=== PATIENT | female | born 1955 | race Caucasian/White ===

== ENCOUNTER 2023-11-26 06:35 | Inpatient (IN) | payer OTHER, MEDICAID ==
[~2023-11-26] VITALS: Ht 165.1 cm; Wt 77.1 kg
[2023-11-26 06:42] VITALS: BP_SYST 151; PULSE 78; RESP 18; TEMP 97.4; O2SAT 98
[2023-11-26] MEDS: ASPIRIN 81 MG TAB.CHEW PO ONE (07:11)
[2023-11-26] MEDS: NACL 0.9% 1,000 ML IV ONE (07:16)
[2023-11-26 07:44] LABS: BASOPHILS % (AUTO) 0.2 % (0.0-2.0); HEMATOCRIT 44.5 % (36-48); HEMOGLOBIN 14.6 g/dL (12.0-16.0); LYMPHOCYTES # (AUTO) 0.5 K/uL (1.0-5.5); LYMPHOCYTES % (AUTO) 3.7 % (20.5-51.5); MEAN CORPUSCULAR HEMOGLOBIN 29 pg (27-31); MEAN CORPUSCULAR HGB CONC 33 % (32-36); MEAN CORPUSCULAR VOLUME 90 fL (79.0-98.0); MONOCYTES # (AUTO) 0.3 K/uL (0.0-1.0); MONOCYTES % (AUTO) 2.1 % (1.7-9.3); NEUTROPHILS # (AUTO) 13.4 K/uL (1.8-7.7); PLATELET COUNT (AUTO) 241 K/uL (130-430); RED BLOOD CELL COUNT(AUTO) 4.95 MIL/uL (4.2-6.2); RED CELL DISTRIBUTION WIDTH 13.5 % (9.0-15.0); WHITE BLOOD COUNT (AUTO) 14.3 K/uL (4.8-10.8)
[2023-11-26 07:58] LABS: ANION GAP 25 (5-15); CALCIUM 8.8 mg/dL (8.4-11.0); CARBON DIOXIDE 18 mmol/L (23-29); CHLORIDE 91 mmol/L (98-107); CREATININE 0.82 mg/dL (0.55-1.30); GFR AFRICAN AMERICAN 89 mL/min (>90); POTASSIUM 3.6 mmol/L (3.5-5.1); SODIUM SERUM 134 mmol/L (136-145); UREA NITROGEN, BLOOD 18 mg/dL (8-21)
[2023-11-26 07:58] LABS: ABG O2 SAT% ESTIMATE 97.6 % (94.0-100.0); BLOOD GAS PO2 98.7 mmHg (75.0-100.0)
[2023-11-26 08:00] LABS: GFR NON AFRICAN-AMERICAN 74 mL/min (>90); GLUCOSE 452 mg/dL (74-106)
[2023-11-26 08:05] LABS: BLOOD GAS BASE EXCESS -9.5 mmol/L (-3.0-3.0)
[2023-11-26 08:06] LABS: ALLEN'S TEST POSITIVE (P)
[2023-11-26 08:14] LABS: ACETONE, SERUM SMALL (NEGATIVE)
[2023-11-26] MEDS: ONDANSETRON HCL 4 MG/2 ML VIAL IVP ONE ×2 (08:21→10:33)
[2023-11-26 08:22] LABS: BILIRUBIN,URINE NEGATIVE (NEGATIVE); BLOOD, URINE 1+ (NEGATIVE); CLARITY/URINE CLEAR (CLEAR); COLOR,URINE YELLOW (YELLOW); GLUCOSE,URINE 3+ (NEGATIVE); KETONES,URINE 3+ (NEGATIVE); LEUKOCYTE ESTERASE ,URINE NEGATIVE (NEGATIVE); NITRITE, URINE NEGATIVE (NEGATIVE); PROTEIN URINE TRACE (NEGATIVE); UROBILINOGEN,URINE 0.2 (0.2-1.0)
[2023-11-26 08:28] LABS: BACTERIA,URINE None Seen /HPF (None Seen); WBC,URINE 0-3 /HPF (0-3); YEAST,URINE Rare /HPF (None Seen)
[2023-11-26] MEDS: INSULIN REGULAR, HUMAN 10 UNITS/0.1 ML, 3 ML VIAL IVP ONE (09:24)
[2023-11-26] MEDS ORDERED: DEXTROSE 50% JECT 50 ML DISP.SYRIN IVP PRN (09:30)
[2023-11-26] MEDS ORDERED: ACETAMINOPHEN 325 MG TABLET PO PRN (09:45)
[2023-11-26] MEDS: ONDANSETRON HCL 4 MG/2 ML VIAL IVP PRN (10:29)
[2023-11-26] MEDS: NACL 0.9% 1,000 ML IV SCH (10:29)
[2023-11-26] MEDS: cefTRIAXone 1 GM IVPB PREMIX 50 ML IV SCH (10:32)
[2023-11-26] MEDS: ENOXAPARIN SODIUM 30 MG/0.3 ML SYRINGE SUBCUT ONE (10:32)
[2023-11-26 10:50] LABS: ACETONE, SERUM POSITIVE (NEGATIVE)
[2023-11-26] MEDS ORDERED: ACAR100T2 PO (10:57)
[2023-11-26] MEDS ORDERED: LORA10TA7 PO (10:57)
[2023-11-26] MEDS ORDERED: IRBE150T48 PO (10:57)
[2023-11-26] MEDS ORDERED: OSC500 PO (10:57)
[2023-11-26] MEDS ORDERED: PIOG15TA67 PO (10:57)
[2023-11-26] MEDS ORDERED: SIMV-43 PO (10:57)
[2023-11-26 10:58] LABS: ANION GAP 22 (5-15); CALCIUM 8.2 mg/dL (8.4-11.0); CARBON DIOXIDE 18 mmol/L (23-29); CHLORIDE 97 mmol/L (98-107); CREATININE 0.59 mg/dL (0.55-1.30); GFR AFRICAN AMERICAN 131 mL/min (>90); GLUCOSE 347 mg/dL (74-106); POTASSIUM 3.8 mmol/L (3.5-5.1); SODIUM SERUM 137 mmol/L (136-145); UREA NITROGEN, BLOOD 18 mg/dL (8-21)
[2023-11-26] MEDS ORDERED: CLON0.1T PO (11:01)
[2023-11-26] MEDS ORDERED: METF-380 PO (11:01)
[2023-11-26] MEDS ORDERED: ASPI-1393 PO (11:01)
[2023-11-26] MEDS ORDERED: ALEN70TA27 PO (11:01)
[2023-11-26] MEDS ORDERED: NATE120T9 PO (11:01)
[2023-11-26] MEDS ORDERED: KCL 40 mEq in 100 mL (PREMIX) 100 ML IV ONE (12:00)
[2023-11-26] MEDS: INSULIN REGULAR, HUMAN 100 UNITS in NS 99 ML IV PRN (13:11)
[2023-11-26] MEDS ORDERED: KCL 20 mEq in 100 mL (PREMIX) 100 ML IV ONE (13:17)
[2023-11-26] MEDS: KCL 20 mEq in 100 mL (PREMIX) 100 ML IV SCH (13:17)
[2023-11-26 13:41] LABS: CALCIUM 8.2 mg/dL (8.4-11.0); CREATININE 0.59 mg/dL (0.55-1.30); POTASSIUM 3.3 mmol/L (3.5-5.1)
[2023-11-26] MEDS: ACETAMINOPHEN 325 MG TABLET PO PRN (14:43)
[2023-11-26] MEDS: LOSARTAN POTASSIUM 50 MG TABLET (COZAAR) PO ONE (17:22)
[2023-11-26] MEDS: hydrALAZINE HCL 20 MG/ML VIAL IVP PRN (18:02)
[2023-11-26 20:18] VITALS: BP_SYST 178; PULSE 87; RESP 22; TEMP 98.4; O2SAT 98
[2023-11-26 21:00] VITALS: BP_SYST 175; PULSE 89; RESP 16; O2SAT 95
[2023-11-26] MEDS: SIMVASTATIN 20 MG TABLET PO SCH (21:52)
[2023-11-26] MEDS: cloNIDine HCL 0.1 MG TABLET PO SCH (21:53)
[2023-11-26 22:00] VITALS: BP_SYST 169; PULSE 91; RESP 18; O2SAT 100
[2023-11-26] MEDS: KCL 40 mEq in 100 mL (PREMIX) 100 ML IV ONE (22:38)
[2023-11-26 23:00] VITALS: BP_SYST 148; PULSE 81; RESP 17; O2SAT 96
[2023-11-26 23:24] LABS: PROTHROMBIN TIME 10.8 SECS (9.5-12.5)
[2023-11-26 23:49] LABS: CALCIUM 7.5 mg/dL (8.4-11.0); CREATININE 0.56 mg/dL (0.55-1.30); POTASSIUM 3.3 mmol/L (3.5-5.1)
[2023-11-27] VITALS (24 sets, daily range): BP systolic 121–194; PULSE 59–103; RESP 10–44; TEMP 98.3–99.5; O2SAT 92–100
[2023-11-27] MEDS ORDERED: NACL 0.9% 1,000 ML IV SCH ×2 (01:45→18:15)
[2023-11-27] MEDS ORDERED: hydrALAZINE HCL 20 MG/ML VIAL IVP PRN (01:45)
[2023-11-27 02:45] LABS: CALCIUM 7.6 mg/dL (8.4-11.0); CREATININE 0.5 mg/dL (0.55-1.30); POTASSIUM 3.9 mmol/L (3.5-5.1)
[2023-11-27] MEDS: hydrALAZINE HCL 20 MG/ML VIAL IVP ONE ×2 (02:49→04:00)
[2023-11-27 07:38] LABS: CREATININE 0.69 mg/dL (0.55-1.30); POTASSIUM 3.4 mmol/L (3.5-5.1)
[2023-11-27] MEDS: ENOXAPARIN SODIUM 30 MG/0.3 ML SYRINGE SUBCUT SCH (08:27)
[2023-11-27] MEDS: LOSARTAN POTASSIUM 50 MG TABLET (COZAAR) PO SCH (08:29)
[2023-11-27] MEDS: CALCIUM 500 MG/TAB PO SCH (08:30)
[2023-11-27] MEDS: LORATADINE 10 MG TABLET PO SCH (08:30)
[2023-11-27] MEDS: ASPIRIN 81 MG TABLET(ECOTRIN) PO SCH (08:30)
[2023-11-27] MEDS: hydrALAZINE HCL 20 MG/ML VIAL IVP PRN (09:40)
[2023-11-27] MEDS ORDERED: D5/0.45 NS 1,000 ML IV SCH (10:15)
[2023-11-27] MEDS: CARVEDILOL 12.5 MG TABLET (COREG) PO ONE (10:43)
[2023-11-27] MEDS ORDERED: COMMUNICATION ORDER XX ONE ×2 (11:15→17:45)
[2023-11-27 11:24] LABS: BASOPHILS # (AUTO) 0.1 K/uL (0.0-0.2); BASOPHILS % (AUTO) 0.4 % (0.0-2.0); EOSINOPHILS % (AUTO) 0.1 % (0.0-4.0); HEMATOCRIT 45.5 % (36-48); HEMOGLOBIN 14.9 g/dL (12.0-16.0); LYMPHOCYTES # (AUTO) 1.6 K/uL (1.0-5.5); LYMPHOCYTES % (AUTO) 12.7 % (20.5-51.5); MEAN CORPUSCULAR HEMOGLOBIN 29 pg (27-31); MEAN CORPUSCULAR HGB CONC 33 % (32-36); MEAN CORPUSCULAR VOLUME 88 fL (79.0-98.0); MONOCYTES # (AUTO) 0.5 K/uL (0.0-1.0); MONOCYTES % (AUTO) 4.2 % (1.7-9.3); NEUTROPHILS # (AUTO) 10.2 K/uL (1.8-7.7); NEUTROPHILS % (AUTO) 82.6 % (40.0-70.0); PLATELET COUNT (AUTO) 265 K/uL (130-430); RED BLOOD CELL COUNT(AUTO) 5.15 MIL/uL (4.2-6.2); RED CELL DISTRIBUTION WIDTH 13.5 % (9.0-15.0); WHITE BLOOD COUNT (AUTO) 12.3 K/uL (4.8-10.8)
[2023-11-27 11:43] LABS: CALCIUM 8.4 mg/dL (8.4-11.0); CREATININE 0.62 mg/dL (0.55-1.30); POTASSIUM 3.3 mmol/L (3.5-5.1)
[2023-11-27 12:04] LABS: ABG O2 SAT% ESTIMATE 95.1 % (94.0-100.0); BLOOD GAS PH 7.469 (7.350-7.450)
[2023-11-27 12:07] LABS: ALLEN'S TEST POSITIVE (P); BLOOD GAS BASE EXCESS -7.6 mmol/L (-3.0-3.0); BLOOD GAS HCO3 13.1 mmol/L (21.0-27.0); BLOOD GAS PCO2 18.4 mmHg (35.0-45.0)
[2023-11-27 13:34] LABS: CALCIUM 8.5 mg/dL (8.4-11.0); CREATININE 0.6 mg/dL (0.55-1.30); POTASSIUM 3.3 mmol/L (3.5-5.1)
[2023-11-27] MEDS: cefTRIAXone 1 GM IVPB PREMIX 50 ML IV SCH (13:52)
[2023-11-27] MEDS: POTASSIUM CHLORIDE 20 MEQ TABLET.ER PO ONE (14:54)
[2023-11-27] MEDS: KCL 40 mEq in 100 mL (PREMIX) 100 ML IV ONE (14:56)
[2023-11-27] MEDS ORDERED: DEXTROSE 50% JECT 50 ML DISP.SYRIN IVP PRN (15:45)
[2023-11-27] MEDS ORDERED: INSULIN REGULAR, HUMAN 100 UNITS/ML, 3 ML VIAL (humuLIN R) SUBCUT PRN (15:45)
[2023-11-27] MEDS ORDERED: INSULIN REGULAR, HUMAN 100 UNITS in NS 99 ML IV PRN (17:45)
[2023-11-27] MEDS: KCL 20 mEq in 100 mL (PREMIX) 100 ML IV ONE (20:08)
[2023-11-27] MEDS: CARVEDILOL 12.5 MG TABLET (COREG) PO SCH (20:09)
[2023-11-27 20:12] LABS: CALCIUM 8.5 mg/dL (8.4-11.0); CREATININE 0.76 mg/dL (0.55-1.30); POTASSIUM 4.8 mmol/L (3.5-5.1)
[2023-11-27 23:08] LABS: ANION GAP 10 (5-15); CARBON DIOXIDE 18 mmol/L (23-29); CHLORIDE 102 mmol/L (98-107); CREATININE 0.77 mg/dL (0.55-1.30); GFR AFRICAN AMERICAN 96 mL/min (>90); GLUCOSE 291 mg/dL (74-106); POTASSIUM 4.6 mmol/L (3.5-5.1); SODIUM SERUM 130 mmol/L (136-145); UREA NITROGEN, BLOOD 15 mg/dL (8-21)
[2023-11-27 23:19] LABS: GFR NON AFRICAN-AMERICAN 79 mL/min (>90)
[2023-11-28] VITALS (20 sets, daily range): BP systolic 101–173; PULSE 57–95; RESP 16–29; TEMP 97.4–98.8; O2SAT 91–98
[2023-11-28] MEDS: MAGNESIUM SULFATE 50 ML IV ONE (01:28)
[2023-11-28 02:40] LABS: ANION GAP 8 (5-15); CALCIUM 8.2 mg/dL (8.4-11.0); CARBON DIOXIDE 21 mmol/L (23-29); CHLORIDE 103 mmol/L (98-107); CREATININE 0.65 mg/dL (0.55-1.30); GFR AFRICAN AMERICAN 117 mL/min (>90); GFR NON AFRICAN-AMERICAN 97 mL/min (>90); GLUCOSE 169 mg/dL (74-106); PHOSPHORUS 1.5 mg/dL (2.7-4.5); POTASSIUM 3.8 mmol/L (3.5-5.1); SODIUM SERUM 132 mmol/L (136-145); UREA NITROGEN, BLOOD 17 mg/dL (8-21)
[2023-11-28] MEDS: MAGNESIUM SULFATE 1 GM/2 ML VIAL ONE (04:13)
[2023-11-28] MEDS: MAGNESIUM SULFATE 3 GM in D5W 100 ML IV ONE (04:24)
[2023-11-28 06:38] LABS: CALCIUM 8.3 mg/dL (8.4-11.0); CREATININE 0.68 mg/dL (0.55-1.30); PHOSPHORUS 2.2 mg/dL (2.7-4.5); POTASSIUM 4.1 mmol/L (3.5-5.1)
[2023-11-28] MEDS ORDERED: NA PHOS 30 MM in NS 250 ML IV ONE (06:45)
[2023-11-28] MEDS: INSULIN GLARGINE 100 UNITS/ML, 10 ML VIAL SUBCUT ONE (09:46)
[2023-11-28] MEDS: D5NS 1,000 ML IV SCH (09:54)
[2023-11-28 10:31] LABS: CALCIUM 8.5 mg/dL (8.4-11.0); CREATININE 0.73 mg/dL (0.55-1.30); PHOSPHORUS 2.3 mg/dL (2.7-4.5); POTASSIUM 4.1 mmol/L (3.5-5.1)
[2023-11-28] MEDS: NA PHOS 30 MM in NS 250 ML IV ONE (11:00)
[2023-11-28] MEDS: CARVEDILOL 12.5 MG TABLET (COREG) PO ONE (12:52)
[2023-11-28] MEDS: INSULIN Lispro 100 UNITS/ML, 3 ML VIAL (humaLOG) SUBCUT SCH (12:56)
[2023-11-28] MEDS: INSULIN LISPRO SLIDING SCALE 100 UNITS/ML, 3 ML VIAL (humaLOG) SUBCUT PRN (16:16)
[2023-11-28] MEDS: CARVEDILOL 25 MG TABLET (COREG) PO SCH (20:19)
[2023-11-29 00:47] VITALS: BP_SYST 122; PULSE 99; RESP 16; TEMP 96.8; O2SAT 97
[2023-11-29 02:36] LABS: PHOSPHORUS 3.7 mg/dL (2.7-4.5)
[2023-11-29 08:00] VITALS: BP_SYST 128; PULSE 76; RESP 18; TEMP 97.6; O2SAT 98
[2023-11-29 08:47] LABS: BASOPHILS % (AUTO) 0.5 % (0.0-2.0); EOSINOPHILS # (AUTO) 0.1 K/uL (0.0-0.4); EOSINOPHILS % (AUTO) 1.1 % (0.0-4.0); HEMATOCRIT 41.1 % (36-48); HEMOGLOBIN 13.8 g/dL (12.0-16.0); LYMPHOCYTES # (AUTO) 1.7 K/uL (1.0-5.5); MEAN CORPUSCULAR HEMOGLOBIN 29 pg (27-31); MEAN CORPUSCULAR HGB CONC 34 % (32-36); MEAN CORPUSCULAR VOLUME 87 fL (79.0-98.0); MONOCYTES # (AUTO) 0.6 K/uL (0.0-1.0); MONOCYTES % (AUTO) 6.3 % (1.7-9.3); NEUTROPHILS # (AUTO) 7.5 K/uL (1.8-7.7); NEUTROPHILS % (AUTO) 75.1 % (40.0-70.0); PLATELET COUNT (AUTO) 257 K/uL (130-430); RED BLOOD CELL COUNT(AUTO) 4.72 MIL/uL (4.2-6.2)
[2023-11-29] MEDS: CARVEDILOL 12.5 MG TABLET (COREG) PO SCH (09:14)
[2023-11-29 12:16] VITALS: BP_SYST 138; PULSE 68; RESP 14; TEMP 98.1; O2SAT 98
[2023-11-29] MEDS: POLYETHYLENE GLYCOL 3350, 17 GM/ POWD.PACK PO ONE (13:46)
[2023-11-29 17:00] VITALS: BP_SYST 154; PULSE 70; RESP 16; TEMP 96.8; O2SAT 97
[2023-11-29 18:45] LABS: CALCIUM 7.6 mg/dL (8.4-11.0); CREATININE 0.67 mg/dL (0.55-1.30); POTASSIUM 3.7 mmol/L (3.5-5.1)
[2023-11-29 20:00] VITALS: O2SAT 96
[2023-11-30] VITALS (8 sets, daily range): BP systolic 103–153; PULSE 60–83; RESP 16–20; TEMP 96.2–98; O2SAT 83–100
[2023-11-30] MEDS: INSULIN Lispro 100 UNITS/ML, 3 ML VIAL (humaLOG) SUBCUT SCH (06:15)
[2023-11-30] MEDS: POLYETHYLENE GLYCOL 3350, 17 GM/ POWD.PACK PO SCH (08:59)
[2023-11-30 12:38] LABS: BASOPHILS % (AUTO) 0.4 % (0.0-2.0); EOSINOPHILS # (AUTO) 0.1 K/uL (0.0-0.4); EOSINOPHILS % (AUTO) 1.1 % (0.0-4.0); HEMOGLOBIN 14.1 g/dL (12.0-16.0); LYMPHOCYTES # (AUTO) 1.1 K/uL (1.0-5.5); LYMPHOCYTES % (AUTO) 13.4 % (20.5-51.5); MEAN CORPUSCULAR HEMOGLOBIN 29 pg (27-31); MEAN CORPUSCULAR HGB CONC 34 % (32-36); MEAN CORPUSCULAR VOLUME 87 fL (79.0-98.0); MONOCYTES # (AUTO) 0.5 K/uL (0.0-1.0); MONOCYTES % (AUTO) 5.9 % (1.7-9.3); NEUTROPHILS # (AUTO) 6.8 K/uL (1.8-7.7); NEUTROPHILS % (AUTO) 79.2 % (40.0-70.0); PLATELET COUNT (AUTO) 210 K/uL (130-430); RED BLOOD CELL COUNT(AUTO) 4.86 MIL/uL (4.2-6.2); RED CELL DISTRIBUTION WIDTH 13.9 % (9.0-15.0); WHITE BLOOD COUNT (AUTO) 8.5 K/uL (4.8-10.8)
[2023-12-01 00:09] LABS: CALCIUM 8.3 mg/dL (8.4-11.0); CREATININE 0.81 mg/dL (0.55-1.30); PHOSPHORUS 3.7 mg/dL (2.7-4.5); POTASSIUM 3.8 mmol/L (3.5-5.1)
[2023-12-01 00:30] VITALS: BP_SYST 138; PULSE 61; RESP 18; TEMP 97.2; O2SAT 99
[2023-12-01 07:28] LABS: CREATININE 0.68 mg/dL (0.55-1.30); POTASSIUM 3.6 mmol/L (3.5-5.1)
[2023-12-01 08:00] VITALS: BP_SYST 148; PULSE 77; RESP 12; TEMP 97.1; O2SAT 99
[2023-12-01 08:50] VITALS: BP_SYST 142; PULSE 7; RESP 19; O2SAT 98
[2023-12-01 10:33] VITALS: O2SAT 98
[2023-12-01] MEDS ORDERED: NALOXONE HCL 0.4 MG/ML AMP (NARCAN) IVP PRN ×2 (11:30)
[2023-12-01] MEDS ORDERED: HYDROcodone/ACETAMIN 10-325 MG TAB PO PRN (11:30)
[2023-12-01] MEDS ORDERED: HYDROcodone/ACETAMIN 5-325 MG TAB (NORCO/ VICODIN) PO PRN (11:30)
[2023-12-01] MEDS: FLUCONAZOLE 200 mg/ NS 100 ML IV SCH (12:00)
[2023-12-01 12:55] LABS: BILIRUBIN,URINE NEGATIVE (NEGATIVE); BLOOD, URINE 3+ (NEGATIVE); CLARITY/URINE CLEAR (CLEAR); COLOR,URINE YELLOW (YELLOW); GLUCOSE,URINE 2+ (NEGATIVE); KETONES,URINE NEGATIVE (NEGATIVE); LEUKOCYTE ESTERASE ,URINE NEGATIVE (NEGATIVE); NITRITE, URINE NEGATIVE (NEGATIVE); PROTEIN URINE NEGATIVE (NEGATIVE); UROBILINOGEN,URINE 0.2 (0.2-1.0)
[2023-12-01 14:03] LABS: BACTERIA,URINE None Seen /HPF (None Seen); WBC,URINE 0-3 /HPF (0-3)
[2023-12-01 19:08] LABS: CALCIUM 8.3 mg/dL (8.4-11.0); CREATININE 0.68 mg/dL (0.55-1.30); POTASSIUM 4.1 mmol/L (3.5-5.1)
[2023-12-01 20:00] VITALS: BP_SYST 146; PULSE 68; RESP 18; TEMP 97.7; O2SAT 99
[2023-12-02] VITALS (9 sets, daily range): BP systolic 148–168; PULSE 62–68; RESP 16–18; TEMP 97.2–98.5; O2SAT 96–100
[2023-12-02 05:15] LABS: BASOPHILS # (AUTO) 0.1 K/uL (0.0-0.2); BASOPHILS % (AUTO) 0.9 % (0.0-2.0); EOSINOPHILS # (AUTO) 0.1 K/uL (0.0-0.4); EOSINOPHILS % (AUTO) 1.3 % (0.0-4.0); HEMATOCRIT 35.5 % (36-48); LYMPHOCYTES # (AUTO) 1.6 K/uL (1.0-5.5); LYMPHOCYTES % (AUTO) 26.7 % (20.5-51.5); MEAN CORPUSCULAR HEMOGLOBIN 29 pg (27-31); MEAN CORPUSCULAR HGB CONC 34 % (32-36); MEAN CORPUSCULAR VOLUME 87 fL (79.0-98.0); MONOCYTES # (AUTO) 0.5 K/uL (0.0-1.0); NEUTROPHILS # (AUTO) 3.7 K/uL (1.8-7.7); NEUTROPHILS % (AUTO) 63.1 % (40.0-70.0); PLATELET COUNT (AUTO) 209 K/uL (130-430); RED BLOOD CELL COUNT(AUTO) 4.09 MIL/uL (4.2-6.2); RED CELL DISTRIBUTION WIDTH 13.8 % (9.0-15.0); WHITE BLOOD COUNT (AUTO) 5.9 K/uL (4.8-10.8)
[2023-12-02 05:42] LABS: CALCIUM 7.9 mg/dL (8.4-11.0); CREATININE 0.49 mg/dL (0.55-1.30); POTASSIUM 3.7 mmol/L (3.5-5.1)
[2023-12-02] MEDS: amLODIPine BESYLATE 5 MG TABLET PO SCH (08:53)
[2023-12-02] MEDS: cefTRIAXone 1 GM IVPB PREMIX 50 ML IV SCH (09:02)
[2023-12-03 00:41] VITALS: BP_SYST 116; PULSE 64; RESP 16; O2SAT 98
[2023-12-03 06:47] LABS: BASOPHILS # (AUTO) 0.1 K/uL (0.0-0.2); EOSINOPHILS # (AUTO) 0.1 K/uL (0.0-0.4); EOSINOPHILS % (AUTO) 1.4 % (0.0-4.0); HEMATOCRIT 39.1 % (36-48); HEMOGLOBIN 12.8 g/dL (12.0-16.0); LYMPHOCYTES # (AUTO) 1.4 K/uL (1.0-5.5); LYMPHOCYTES % (AUTO) 21.9 % (20.5-51.5); MEAN CORPUSCULAR HEMOGLOBIN 29 pg (27-31); MEAN CORPUSCULAR HGB CONC 33 % (32-36); MEAN CORPUSCULAR VOLUME 88 fL (79.0-98.0); MONOCYTES # (AUTO) 0.6 K/uL (0.0-1.0); MONOCYTES % (AUTO) 9.5 % (1.7-9.3); NEUTROPHILS # (AUTO) 4.3 K/uL (1.8-7.7); NEUTROPHILS % (AUTO) 66.2 % (40.0-70.0); PLATELET COUNT (AUTO) 235 K/uL (130-430); RED BLOOD CELL COUNT(AUTO) 4.42 MIL/uL (4.2-6.2); WHITE BLOOD COUNT (AUTO) 6.4 K/uL (4.8-10.8)
[2023-12-03 07:09] LABS: CALCIUM 7.8 mg/dL (8.4-11.0); CREATININE 0.56 mg/dL (0.55-1.30); POTASSIUM 3.3 mmol/L (3.5-5.1)
[2023-12-03 08:00] VITALS: O2SAT 98
[2023-12-03 08:48] LABS: ALBUMIN 2.1 g/dL (3.4-4.8); BILIRUBIN,DIRECT 0.1 mg/dL (0.0-0.3); THYROID STIMULATING HORMONE 3.21 uIu/mL (0.34-4.82); TOTAL BILIRUBIN 0.3 mg/dL (0.0-1.0); TOTAL PROTEIN, SERUM 6.1 g/dL (6.4-8.3)
[2023-12-03] MEDS: INSULIN GLARGINE 100 UNITS/ML, 10 ML VIAL SUBCUT SCH (09:29)
[2023-12-03] MEDS: POTASSIUM CHLORIDE 20 MEQ TABLET.ER PO ONE (09:45)
[2023-12-03 11:24] VITALS: BP_SYST 104; PULSE 78; RESP 18; TEMP 98; O2SAT 97
[2023-12-03 15:51] VITALS: BP_SYST 145; PULSE 71; RESP 18; TEMP 97.4; O2SAT 99
[2023-12-03 20:00] VITALS: BP_SYST 151; PULSE 75; RESP 18; TEMP 98.4; O2SAT 95
[2023-12-03] MEDS: GABAPENTIN 100 MG CAPSULE PO SCH (21:08)
[2023-12-03] MEDS: traZODone HCL 50 MG TABLET (DESYREL) PO PRN (21:19)
[2023-12-04] VITALS: BP_SYST 133; PULSE 74; RESP 18; TEMP 98.6; O2SAT 96
[2023-12-04 05:31] LABS: BASOPHILS % (AUTO) 0.6 % (0.0-2.0); EOSINOPHILS # (AUTO) 0.1 K/uL (0.0-0.4); EOSINOPHILS % (AUTO) 1.5 % (0.0-4.0); HEMATOCRIT 36.8 % (36-48); HEMOGLOBIN 12.2 g/dL (12.0-16.0); LYMPHOCYTES # (AUTO) 1.8 K/uL (1.0-5.5); LYMPHOCYTES % (AUTO) 29.8 % (20.5-51.5); MEAN CORPUSCULAR HEMOGLOBIN 29 pg (27-31); MEAN CORPUSCULAR HGB CONC 33 % (32-36); MEAN CORPUSCULAR VOLUME 87 fL (79.0-98.0); MONOCYTES # (AUTO) 0.7 K/uL (0.0-1.0); MONOCYTES % (AUTO) 10.9 % (1.7-9.3); NEUTROPHILS # (AUTO) 3.5 K/uL (1.8-7.7); NEUTROPHILS % (AUTO) 57.2 % (40.0-70.0); PLATELET COUNT (AUTO) 250 K/uL (130-430); RED BLOOD CELL COUNT(AUTO) 4.21 MIL/uL (4.2-6.2); WHITE BLOOD COUNT (AUTO) 6.1 K/uL (4.8-10.8)
[2023-12-04 05:47] LABS: CALCIUM 7.4 mg/dL (8.4-11.0); CREATININE 0.54 mg/dL (0.55-1.30); POTASSIUM 3.4 mmol/L (3.5-5.1)
[2023-12-04 08:00] VITALS: O2SAT 98
[2023-12-04] MEDS: INSULIN GLARGINE 100 UNITS/ML, 10 ML VIAL SUBCUT SCH (08:33)
[2023-12-04] MEDS: POTASSIUM CHLORIDE 20 MEQ TABLET.ER PO ONE (08:49)
[2023-12-04] MEDS ORDERED: INSULIN GLARGINE 100 UNITS/ML, 10 ML VIAL SUBCUT SCH (09:00)
[2023-12-04 11:20] VITALS: BP_SYST 129; PULSE 84; RESP 18; TEMP 98.4; O2SAT 96
[2023-12-04] MEDS ORDERED: INSU100V SUBCUT (15:22)
[2023-12-04] MEDS ORDERED: NEU100 PO (15:22)
[2023-12-04] MEDS ORDERED: INSU100V9 SUBCUT (15:22)
[2023-12-04] MEDS ORDERED: METF-380 PO (15:22)
[2023-12-04] MEDS ORDERED: LOSA-415 PO (15:22)
[2023-12-04] MEDS ORDERED: COR12.5 PO (15:22)
[2023-12-04 16:00] VITALS: BP_SYST 128; PULSE 82; RESP 16; TEMP 98.3; O2SAT 96
[2023-12-04 17:53] VITALS: BP_SYST 128; PULSE 82; RESP 16; TEMP 98.3; O2SAT 98
[2023-12-05] MEDS ORDERED: INSULIN GLARGINE 100 UNITS/ML, 10 ML VIAL SUBCUT SCH (09:00)
== END 2023-12-04 19:00 | DRG 637 ==
LOC: SED 06:35 → SIC 09:24 → STU 11-28 18:56 → SMU 12-02 09:14
PROVIDERS: ADMIT Student in an Organized Health Care Education/Training Program; ATTEND Student in an Organized Health Care Education/Training Program
PROC: 02HV33Z Insertion of Infusion Device into Superior Vena Cava, Percutaneous Approach (ICD-10-PCS; principal; 2023-11-26)
DX: E11.10 Type 2 diabetes mellitus with ketoacidosis without coma (principal); J96.01 Acute respiratory failure with hypoxia; E87.1 Hypo-osmolality and hyponatremia; R65.10 Systemic inflammatory response syndrome (SIRS) of non-infectious origin without acute organ dysfunction; E11.40 Type 2 diabetes mellitus with diabetic neuropathy, unspecified; E78.5 Hyperlipidemia, unspecified; E87.8 Other disorders of electrolyte and fluid balance, not elsewhere classified; E83.42 Hypomagnesemia; E87.6 Hypokalemia; E83.39 Other disorders of phosphorus metabolism; I25.10 Atherosclerotic heart disease of native coronary artery without angina pectoris; I10 Essential (primary) hypertension; S80.12XA Contusion of left lower leg, initial encounter; W18.39XA Other fall on same level, initial encounter; Z86.73 Personal history of transient ischemic attack (TIA), and cerebral infarction without residual deficits; Z88.5 Allergy status to narcotic agent; Z79.899 Other long term (current) drug therapy; Z79.82 Long term (current) use of aspirin; Z79.84 Long term (current) use of oral hypoglycemic drugs; Y93.89 Activity, other specified; Y92.89 Other specified places as the place of occurrence of the external cause; Y99.8 Other external cause status
CPT/HCPCS: 36415; 36600; 70450-TC; 71045; 72131; 72170-TC; 73502; 73552; 73560; 80048; 80061; 80076; 81000; 81001; 81015; 82009; 82803; 82948; 83037; 83735; 83880; 84100; 84443; 84484; 85025; 85610; 85730; 87040; 87081; 87086; 92610-GN; 93005; 93970; 94760; 96365; 97110-GP; 97112-GP; 97116-GP; 97530-GP; 99291; G0378; J0360; J0696; J1450; J1650; J1815; J2405; J3475; J3480; J7050